=== PATIENT | female | born 1995 | race African-American/Black ===

== ENCOUNTER 2019-06-02 18:26 | Emergency (ER) | payer MEDICAID ==
[~2019-06-02] VITALS: Ht 175.3 cm; Wt 66.0 kg
[2019-06-02] MEDS ORDERED: IBUPROFEN 600MG TABLET PO ONE (20:00)
[2019-06-02 22:08] VITALS: BP 121/82
== END 2019-06-02 22:15 | disposition home or self-care (01) ==
LOC: ER 18:26
DX: S83.8X1A Sprain of other specified parts of right knee, initial encounter (principal); X50.1XXA Overexertion from prolonged static or awkward postures, initial encounter; Y93.89 Activity, other specified; Y92.89 Other specified places as the place of occurrence of the external cause; Y99.8 Other external cause status
CPT/HCPCS: 73560; 99283

== ENCOUNTER 2021-03-03 09:32 | Emergency (ER) | payer SELFPAY ==
[~2021-03-03] VITALS: Ht 167.6 cm; Wt 80.0 kg
[2021-03-03] MEDS ORDERED: CEPH500T MT (11:04)
[2021-03-03 11:18] VITALS: BP 118/84
== END 2021-03-03 11:20 | disposition home or self-care (01) ==
LOC: ER 09:32
DX: L03.116 Cellulitis of left lower limb (principal)
CPT/HCPCS: 93971; 99284

== ENCOUNTER 2021-03-04 16:15 | Inpatient (IN) | payer MEDICAID, OTHER ==
[~2021-03-04] VITALS: Ht 160 cm; Wt 84.4 kg
[~2021-03-04 16:15] MED LIST: CEPH500T MT
[2021-03-04] MEDS ORDERED: SODIUM CHLORIDE 0.9% 1,000 ML IV ONE (17:00)
[2021-03-04] MEDS ORDERED: KETOROLAC 15MG/ML VIAL IV ONE (17:00)
[2021-03-04 17:26] LABS: BASOPHILS % 0.4 % (0.0-2.0); EOSINOPHILS % 2.9 % (0.0-5.0); HEMATOCRIT. 33.6 % (36.0-48.0); HEMOGLOBIN. 11.3 g/dL (12.0-16.0); LYMPHOCYTES % 18.1 % (20.0-50.0); MEAN CORPUSCULAR HEMOGLOBIN 29.4 pg (28.0-32.0); MEAN CORPUSCULAR VOLUME 87.2 fL (81.0-99.0); MEAN PLATELET VOLUME 8.2 fl (7.4-10.4); MONOCYTES % 11.2 % (2.0-8.0); NEUTROPHILS % 67.4 % (40.0-76.0); PLATELET 104 x1000/uL (130-400); RED BLOOD CELL COUNT 3.86 mill/uL (4.2-5.4); RED CELL DISTRIBUTION WIDTH 15.9 % (11.6-14.6)
[2021-03-04 17:28] LABS: CHLORIDE 106 mEq/L (98-107)
[2021-03-04 17:29] LABS: HCG SCREEN NEGATIVE
[2021-03-04 17:59] LABS: CREATINE KINASE 369 IU/L (26-192)
[2021-03-04] MEDS ORDERED: ASPIRIN 325MG TABLET PO ONE (18:30)
[2021-03-04] MEDS ORDERED: IOHEXOL-350 100 ML BOTTLE ONE (23:20)
[2021-03-05 01:22] VITALS: BP 105/66
[2021-03-05] MEDS: HYDROCODONE/ACETAMINOPHEN 5/325MG TABLET PO PRN ×2 (06:53→16:36)
[2021-03-05 07:44] LABS: CHLORIDE 113 mEq/L (98-107)
[2021-03-05 07:51] LABS: HDL CHOLESTEROL 62 mg/dL (40-59)
[2021-03-05 07:55] LABS: HEMATOCRIT. 30.3 % (36.0-48.0); MEAN CORPUSCULAR HEMOGLOBIN 29.1 pg (28.0-32.0); MEAN CORPUSCULAR VOLUME 88.4 fL (81.0-99.0); MEAN PLATELET VOLUME 8.9 fl (7.4-10.4); PLATELET 87 x1000/uL (130-400); RED BLOOD CELL COUNT 3.43 mill/uL (4.2-5.4); RED CELL DISTRIBUTION WIDTH 15.9 % (11.6-14.6)
[2021-03-05 07:56] LABS: LDL CHOLESTEROL 52 mg/dL (5-100)
[2021-03-05 08:00] VITALS: BP 87/51
[2021-03-05] MEDS ORDERED: SODIUM CHLORIDE 0.9% 1,000 ML IV NR (09:45)
[2021-03-05 12:00] VITALS: BP 88/53
[2021-03-05 12:46] LABS: *AMPHETAMINES SCREEN URINE NEGATIVE (NEGATIVE)
[2021-03-05 12:47] LABS: *BARBITURATES SCREEN URINE NEGATIVE (NEGATIVE); *BENZODIAZEPINES SCREEN URINE NEGATIVE (NEGATIVE); *COCAINE SCREEN URINE NEGATIVE (NEGATIVE); CANNABINOID URINE SCREEN NEGATIVE (NEGATIVE); PHENCYCLIDINE URINE SCREEN NEGATIVE (NEGATIVE)
[2021-03-05 12:49] LABS: METHADONE URINE SCREEN NEGATIVE (NEGATIVE)
[2021-03-05 13:37] LABS: OPIATES URINE SCREEN PRESUMTIVE POSITIVE (NEGATIVE)
[2021-03-05 14:24] LABS: PLATELET ESTIMATE DECREASED
[2021-03-05] MEDS: SODIUM CHLORIDE 0.9% 1,000 ML IV SCH (14:52)
[2021-03-05 16:00] VITALS: BP 90/58
[2021-03-05 16:51] LABS: FERRITIN 27 ng/mL (10-291)
[2021-03-05 17:06] LABS: VITAMIN B12 SERUM 695 pg/mL (211-911)
[2021-03-05 20:00] VITALS: BP 93/57
[2021-03-05] MEDS ORDERED: VANCOMYCIN 1500MG in DEXTROSE 5% WATER 250ML IV NR (20:00)
[2021-03-06] VITALS: BP 93/56
[2021-03-06] MEDS: SODIUM CHLORIDE 0.9% 1,000 ML IV SCH ×3 (01:07→22:16)
[2021-03-06] MEDS: HYDROCODONE/ACETAMINOPHEN 5/325MG TABLET PO PRN (03:58)
[2021-03-06 04:00] VITALS: BP 97/60
[2021-03-06 06:57] LABS: BASOPHILS % 0.4 % (0.0-2.0); EOSINOPHILS % 8.5 % (0.0-5.0); HEMOGLOBIN. 9.4 g/dL (12.0-16.0); LYMPHOCYTES % 15.8 % (20.0-50.0); MEAN CORPUSCULAR HEMOGLOBIN 29.4 pg (28.0-32.0); MEAN CORPUSCULAR VOLUME 87.6 fL (81.0-99.0); MEAN PLATELET VOLUME 9.6 fl (7.4-10.4); MONOCYTES % 14.2 % (2.0-8.0); NEUTROPHILS % 61.1 % (40.0-76.0); PLATELET 101 x1000/uL (130-400); RED BLOOD CELL COUNT 3.19 mill/uL (4.2-5.4); RED CELL DISTRIBUTION WIDTH 16.1 % (11.6-14.6)
[2021-03-06 07:23] LABS: CHLORIDE 112 mEq/L (98-107)
[2021-03-06 08:00] VITALS: BP 91/62
[2021-03-06] MEDS: VANCOMYCIN 1250MG in DEXTROSE 5% WATER 250ML IV SCH ×2 (10:49→20:13)
[2021-03-06 12:00] VITALS: BP 87/51
[2021-03-06] MEDS: IRON SUCROSE COMPLEX 100 MG/5 ML ML IV SCH (15:53)
[2021-03-06 16:00] VITALS: BP 92/68
[2021-03-06 20:00] VITALS: BP 107/68
[2021-03-07] VITALS: BP 92/45
[2021-03-07 04:00] VITALS: BP 90/53
[2021-03-07 06:25] LABS: BASOPHILS % 0.4 % (0.0-2.0); EOSINOPHILS % 6.7 % (0.0-5.0); HEMATOCRIT. 28.8 % (36.0-48.0); HEMOGLOBIN. 9.7 g/dL (12.0-16.0); LYMPHOCYTES % 16.9 % (20.0-50.0); MEAN CORPUSCULAR HEMOGLOBIN 29.5 pg (28.0-32.0); MEAN CORPUSCULAR VOLUME 87.9 fL (81.0-99.0); MEAN PLATELET VOLUME 9.6 fl (7.4-10.4); MONOCYTES % 10.3 % (2.0-8.0); NEUTROPHILS % 65.7 % (40.0-76.0); PLATELET 98 x1000/uL (130-400); RED BLOOD CELL COUNT 3.28 mill/uL (4.2-5.4)
[2021-03-07 07:13] LABS: CHLORIDE 110 mEq/L (98-107)
[2021-03-07 08:00] VITALS: BP 92/60
[2021-03-07] MEDS ORDERED: NALOXONE HCL 0.4MG/ML VIAL IV PRN (09:30)
[2021-03-07] MEDS: POLYETHYLENE GLYCOL 3350 (17GM) 1 DOSE PACK PO NR ×3 (09:30→09:45)
[2021-03-07] MEDS: VANCOMYCIN 1250MG in DEXTROSE 5% WATER 250ML IV SCH (09:41)
[2021-03-07] MEDS: SODIUM CHLORIDE 0.9% 1,000 ML IV SCH ×2 (09:42→21:06)
[2021-03-07] MEDS ORDERED: REGADENOSON 0.4 MG/5 ML IV SCH (10:15)
[2021-03-07] MEDS ORDERED: PHENOL/SODIUM PHENOLATE 1.4% SRPAY 177ML MM PRN (11:00)
[2021-03-07 12:00] VITALS: BP 83/52
[2021-03-07] MEDS ORDERED: REGADENOSON 0.4 MG/5 ML IV ONE (14:03)
[2021-03-07 14:14] LABS: HEPATITIS B SURFACE ANTIGEN NEGATIVE
[2021-03-07] MEDS ORDERED: BISACODYL 10MG SUPP PR PRN (15:30)
[2021-03-07] MEDS: IRON SUCROSE COMPLEX 100 MG/5 ML ML IV SCH (15:32)
[2021-03-07 16:00] VITALS: BP 90/65
[2021-03-07] MEDS: VANCOMYCIN 1 G PREMIX 200 ML IV SCH ×2 (17:47→17:55)
[2021-03-07 20:00] VITALS: BP 91/58
[2021-03-08] VITALS: BP 97/53
[2021-03-08] MEDS: VANCOMYCIN 1 G PREMIX 200 ML IV SCH ×3 (01:55→17:18)
[2021-03-08 04:00] VITALS: BP 98/63
[2021-03-08 06:59] LABS: HEMATOCRIT. 26.6 % (36.0-48.0); HEMOGLOBIN. 8.8 g/dL (12.0-16.0); MEAN CORPUSCULAR HEMOGLOBIN 29.2 pg (28.0-32.0); MEAN PLATELET VOLUME 9.6 fl (7.4-10.4); PLATELET 92 x1000/uL (130-400); RED BLOOD CELL COUNT 3.03 mill/uL (4.2-5.4); RED CELL DISTRIBUTION WIDTH 15.7 % (11.6-14.6)
[2021-03-08 07:17] LABS: CHLORIDE 111 mEq/L (98-107)
[2021-03-08] MEDS: SODIUM CHLORIDE 0.9% 1,000 ML IV SCH ×2 (07:42→17:19)
[2021-03-08 08:00] VITALS: BP 95/56
[2021-03-08 12:00] VITALS: BP 112/61
[2021-03-08] MEDS: HYDROCODONE/ACETAMINOPHEN 5/325MG TABLET PO PRN (13:17)
[2021-03-08] MEDS: IRON SUCROSE COMPLEX 100 MG/5 ML ML IV SCH (14:08)
[2021-03-08 14:58] LABS: NUCLEATED RED BLOOD CELLS 1 /100 WBC
[2021-03-08 14:59] LABS: PLATELET ESTIMATE SLIGHTLY DECREASED
[2021-03-08 16:00] VITALS: BP 110/65
[2021-03-08 20:00] VITALS: BP 106/66
[2021-03-08] MEDS ORDERED: ONDANSETRON HCL 4MG/2ML INJ IV PRN (23:30)
[2021-03-09] VITALS: BP 101/57
[2021-03-09] MEDS: VANCOMYCIN 1 G PREMIX 200 ML IV SCH ×3 (01:38→17:03)
[2021-03-09 04:00] VITALS: BP 90/51
[2021-03-09 04:17] LABS: ANA IFA Negative (.)
[2021-03-09] MEDS: SODIUM CHLORIDE 0.9% 1,000 ML IV SCH ×2 (05:56→16:07)
[2021-03-09 08:00] VITALS: BP 103/61
[2021-03-09 10:05] LABS: BASOPHILS % 0.3 % (0.0-2.0); EOSINOPHILS % 4.5 % (0.0-5.0); HEMATOCRIT. 27.7 % (36.0-48.0); HEMOGLOBIN. 9.1 g/dL (12.0-16.0); LYMPHOCYTES % 15.2 % (20.0-50.0); MEAN CORPUSCULAR HEMOGLOBIN 29.2 pg (28.0-32.0); MEAN CORPUSCULAR VOLUME 88.6 fL (81.0-99.0); MEAN PLATELET VOLUME 9.5 fl (7.4-10.4); MONOCYTES % 11.5 % (2.0-8.0); NEUTROPHILS % 68.5 % (40.0-76.0); PLATELET 111 x1000/uL (130-400); RED BLOOD CELL COUNT 3.12 mill/uL (4.2-5.4); RED CELL DISTRIBUTION WIDTH 15.9 % (11.6-14.6)
[2021-03-09 10:07] LABS: CHLORIDE 109 mEq/L (98-107)
[2021-03-09 10:16] LABS: VANCOMYCIN TROUGH 12.3 ug/mL (5.0-10.0)
[2021-03-09 12:00] VITALS: BP 118/73
[2021-03-09] MEDS: HYDROCODONE/ACETAMINOPHEN 5/325MG TABLET PO PRN (13:49)
[2021-03-09 16:00] VITALS: BP 103/58
[2021-03-09 20:00] VITALS: BP 116/73
[2021-03-09] MEDS: METHYLPREDNISOLONE SOD SUCC 40 MG/ML VIAL IV SCH (22:08)
[2021-03-10] VITALS: BP 109/71
[2021-03-10] MEDS: VANCOMYCIN 1 G PREMIX 200 ML IV SCH ×3 (01:59→17:23)
[2021-03-10 04:00] VITALS: BP 95/69
[2021-03-10] MEDS: SODIUM CHLORIDE 0.9% 1,000 ML IV SCH ×2 (04:10→15:01)
[2021-03-10] MEDS: METHYLPREDNISOLONE SOD SUCC 40 MG/ML VIAL IV SCH ×3 (05:26→20:34)
[2021-03-10 07:44] LABS: HEMATOCRIT. 28.5 % (36.0-48.0); HEMOGLOBIN. 9.6 g/dL (12.0-16.0); MEAN CORPUSCULAR HEMOGLOBIN 29.6 pg (28.0-32.0); MEAN CORPUSCULAR VOLUME 87.7 fL (81.0-99.0); MEAN PLATELET VOLUME 9.3 fl (7.4-10.4); PLATELET 126 x1000/uL (130-400); RED BLOOD CELL COUNT 3.24 mill/uL (4.2-5.4)
[2021-03-10 08:00] VITALS: BP 127/82
[2021-03-10 08:12] LABS: CHLORIDE 107 mEq/L (98-107)
[2021-03-10 08:21] LABS: TOTAL IRON BINDING CAPACITY 401 ug/dL (250-450)
[2021-03-10 08:22] LABS: CREATINE KINASE 229 IU/L (26-192); T4 FREE 1.39 ng/dL (0.76-1.46)
[2021-03-10 08:34] LABS: VITAMIN B12 SERUM 544 pg/mL (211-911)
[2021-03-10] MEDS: HYDROXYCHLOROQUINE SULFATE 200MG TABLET PO SCH ×2 (10:38→17:23)
[2021-03-10 12:00] VITALS: BP 115/72
[2021-03-10] MEDS ORDERED: LIDOCAINE HCL 1% 20ML VIAL (Pyxis) INJ ONE (13:22)
[2021-03-10 13:38] LABS: NUCLEATED RED BLOOD CELLS 1 /100 WBC; PLATELET ESTIMATE SLIGHTLY DECREASED
[2021-03-10 16:00] VITALS: BP 123/73
[2021-03-10 20:00] VITALS: BP 110/62
[2021-03-11] VITALS: BP 102/48
[2021-03-11] MEDS: SODIUM CHLORIDE 0.9% 1,000 ML IV SCH ×2 (00:45→12:26)
[2021-03-11 04:00] VITALS: BP 90/43
[2021-03-11] MEDS: METHYLPREDNISOLONE SOD SUCC 40 MG/ML VIAL IV SCH ×3 (05:54→21:37)
[2021-03-11] MEDS: HYDROXYCHLOROQUINE SULFATE 200MG TABLET PO SCH ×2 (08:24→17:16)
[2021-03-11 09:07] LABS: ANTI-JO 1 ABS <0.2 AI (0.0-0.9); G6PD RBC 3.28 x10E6/uL (3.77-5.28)
[2021-03-11 12:33] VITALS: BP 118/66
[2021-03-11 15:10] LABS: ANTI-DNA DOUBLE STRANDED QUANT 1 IU/mL (0-9); G6PD QUANTITATIVE 340 (155-399)
[2021-03-11 15:28] LABS: HEMATOCRIT. 29.1 % (36.0-48.0); HEMOGLOBIN. 9.6 g/dL (12.0-16.0); MEAN CORPUSCULAR HEMOGLOBIN 29.4 pg (28.0-32.0); MEAN CORPUSCULAR VOLUME 88.8 fL (81.0-99.0); MEAN PLATELET VOLUME 9.2 fl (7.4-10.4); PLATELET 234 x1000/uL (130-400); RED BLOOD CELL COUNT 3.27 mill/uL (4.2-5.4); RED CELL DISTRIBUTION WIDTH 16.3 % (11.6-14.6)
[2021-03-11 15:38] LABS: CHLORIDE 111 mEq/L (98-107)
[2021-03-11 16:00] VITALS: BP 91/57
[2021-03-11] MEDS ORDERED: MORPHINE SULFATE 2 MG/ML CPJ (NOT FOR IM USE) IV PRN (17:45)
[2021-03-11 20:00] VITALS: BP 96/59
[2021-03-11 22:12] LABS: PLATELET ESTIMATE NORMAL
[2021-03-12] VITALS: BP 94/61
[2021-03-12 04:00] VITALS: BP 101/65
[2021-03-12] MEDS ORDERED: PREDNISONE 10MG TABLET PO SCH (07:40)
[2021-03-12 08:00] VITALS: BP 92/63
[2021-03-12] MEDS: HYDROXYCHLOROQUINE SULFATE 200MG TABLET PO SCH ×3 (08:50→16:31)
[2021-03-12 09:05] LABS: BASOPHILS % 0.1 % (0.0-2.0); CHLORIDE 109 mEq/L (98-107); HEMATOCRIT. 28.9 % (36.0-48.0); HEMOGLOBIN. 9.6 g/dL (12.0-16.0); LYMPHOCYTES % 10.9 % (20.0-50.0); MEAN CORPUSCULAR HEMOGLOBIN 29.3 pg (28.0-32.0); MEAN CORPUSCULAR VOLUME 88.4 fL (81.0-99.0); MEAN PLATELET VOLUME 8.7 fl (7.4-10.4); MONOCYTES % 9.5 % (2.0-8.0); NEUTROPHILS % 79.5 % (40.0-76.0); PLATELET 229 x1000/uL (130-400); RED BLOOD CELL COUNT 3.27 mill/uL (4.2-5.4); RED CELL DISTRIBUTION WIDTH 16.4 % (11.6-14.6)
[2021-03-12 12:00] VITALS: BP_SYST 95; BP_DIAS 68; BP_DIAS 88
[2021-03-12] MEDS: SODIUM CHLORIDE 0.9% 1,000 ML IV SCH ×2 (12:25→12:27)
[2021-03-12 15:48] VITALS: BP 95/58
[2021-03-12 16:00] VITALS: BP 98/65
[2021-03-12] MEDS ORDERED: FERR325T6 MT (16:39)
[2021-03-12] MEDS ORDERED: PRED10TA23 MT (16:39)
[2021-03-12] MEDS ORDERED: FAMO20TA8 MT (16:39)
[2021-03-12 17:06] LABS: ALDOLASE 19.1 U/L (3.3-10.3)
[2021-03-12 19:10] LABS: ACTIN (SMOOTH MUSCLE) ANTIBODY 8 Units (0-19)
[2021-03-13 07:06] LABS: NEISSERIA GONORRHOEAE NAA Negative (Negative)
[2021-03-13 09:10] LABS: ANTI-CARDIOLIPIN AB IGA < 9 APL U/mL (0-11); ANTI-CARDIOLIPIN AB IGG < 9 GPL U/mL (0-14); ANTI-CARDIOLIPIN AB IGM 28 MPL U/mL (0-12)
[2021-03-13 13:10] LABS: HIV SCREEN 4G Non Reactive (Non Reactive)
[2021-03-13 19:08] LABS: ANTI-MYELOPEROXIDASE AB < 9.0 U/mL (0.0-9.0); ANTI-PROTEINASE 3 ABS 6.1 U/mL (0.0-3.5)
[2021-03-15 09:07] LABS: CYC CITRULLINATED PEP IgG/IgA 34 units (0-19)
[2021-03-15 13:07] LABS: ATYPICAL P-ANCA <1:20 titer (Neg:<1:20); CYTOPLASMIC C-ANCA <1:20 titer (Neg:<1:20); PERINUCLEAR P-ANCA 1:40 titer (Neg:<1:20)
== END 2021-03-12 19:15 | disposition home or self-care (01) | DRG 720 ==
LOC: ER 16:15 → ENRESERV 23:13 → 8WST 03-05 00:05
PROVIDERS: ADMIT Internal Medicine; ATTEND Internal Medicine
PROC: 02HV33Z Insertion of Infusion Device into Superior Vena Cava, Percutaneous Approach (ICD-10-PCS; principal; 2021-03-10)
PROC: B518ZZA Fluoroscopy of Superior Vena Cava, Guidance (ICD-10-PCS; 2021-03-10)
PROC: B548ZZA Ultrasonography of Superior Vena Cava, Guidance (ICD-10-PCS; 2021-03-10)
DX: A41.89 Other specified sepsis (principal); R65.21 Severe sepsis with septic shock; I21.4 Non-ST elevation (NSTEMI) myocardial infarction; D69.6 Thrombocytopenia, unspecified; J90 Pleural effusion, not elsewhere classified; I42.9 Cardiomyopathy, unspecified; K52.1 Toxic gastroenteritis and colitis; D72.810 Lymphocytopenia; L03.116 Cellulitis of left lower limb; N93.9 Abnormal uterine and vaginal bleeding, unspecified; R79.82 Elevated C-reactive protein (CRP); M62.81 Muscle weakness (generalized); R74.01 Elevation of levels of liver transaminase levels; Z20.822 Contact with and (suspected) exposure to COVID-19; T36.95XA Adverse effect of unspecified systemic antibiotic, initial encounter; D50.9 Iron deficiency anemia, unspecified; M35.9 Systemic involvement of connective tissue, unspecified; K76.0 Fatty (change of) liver, not elsewhere classified; K59.00 Constipation, unspecified; Y92.238 Other place in hospital as the place of occurrence of the external cause; T38.0X5A Adverse effect of glucocorticoids and synthetic analogues, initial encounter; Y92.89 Other specified places as the place of occurrence of the external cause
CPT/HCPCS: 36415; 36573; 71045; 71275; 73220; 73630; 78452; 80048; 80053; 80061; 80202; 80305; 82085; 82164; 82550; 82607; 82728; 82955; 83520; 83540; 83550; 83735; 83880; 84145; 84439; 84484; 84703; 85025; 85041; 85651; 86141; 86147; 86160; 86200; 86225; 86235; 86256; 86431; 86592; 86705; 86709; 86780; 86803; 86880; 87070; 87340; 87389; 87426; 87430; 87449; 87491; 87591; 93005; 93017; 93306; 99285; A9500; C1725; C1769; C1893; J1885; J2270; J2785; J2920; J3370; J3490; J7030; J7040; J7060; J7512; Q9967

== ENCOUNTER 2021-04-05 16:50 | Emergency (ER) | payer MEDICAID ==
[~2021-04-05] VITALS: Ht 167.6 cm; Wt 78.0 kg
[~2021-04-05 16:50] MED LIST changes: -CEPH500T MT; +FAMO20TA8 MT; +FERR325T6 MT; +PRED10TA23 MT
[2021-04-05 17:01] VITALS: BP 106/70
[2021-04-05 18:59] LABS: CLARITY URINE CLEAR (CLEAR); COLOR URINE YELLOW (YELLOW); KETONES URINE 1+ (NEGATIVE); LEUKOCYTE ESTERASE URINE 2+ (NEGATIVE); NITRITE URINE NEGATIVE (NEGATIVE); OCCULT BLOOD URINE NEGATIVE (NEGATIVE); PH URINE 5.5 (4.5-8.0); PROTEIN URINE NEGATIVE (NEGATIVE); SPECIFIC GRAVITY URINE 1.022 (1.005-1.030)
[2021-04-05] MEDS ORDERED: DIF15 MT (19:22)
[2021-04-05] MEDS ORDERED: CEPH500C2 MT (19:22)
== END 2021-04-05 20:16 | disposition home or self-care (01) ==
LOC: ER 16:50
DX: N39.0 Urinary tract infection, site not specified (principal); Z98.890 Other specified postprocedural states
CPT/HCPCS: 81003; 81025; 82962; 99283

== ENCOUNTER 2021-08-19 08:55 | Emergency (ER) | payer MEDICAID, OTHER ==
[~2021-08-19] VITALS: Ht 167.6 cm; Wt 77.0 kg
[~2021-08-19 08:55] MED LIST changes: +CEPH500C2 MT; +DIF15 MT
[2021-08-19] MEDS ORDERED: ONDANSETRON HCL 4MG/2ML INJ IV STA (09:10)
[2021-08-19] MEDS ORDERED: KETOROLAC 30MG/ML VIAL IV STA (09:10)
[2021-08-19] MEDS ORDERED: SODIUM CHLORIDE 0.9% 1000ML BAG (SEPSIS BOLUS) IV ONE (09:15)
[2021-08-19] MEDS ORDERED: SODIUM CHLORIDE 0.9% 1,000 ML IV ONE (09:15)
[2021-08-19 10:06] LABS: BASOPHILS % 0.2 % (0.0-2.0); EOSINOPHILS % 5.3 % (0.0-5.0); HEMATOCRIT. 45.1 % (36.0-48.0); HEMOGLOBIN. 15.6 g/dL (12.0-16.0); LYMPHOCYTES % 17.1 % (20.0-50.0); MEAN CORPUSCULAR HEMOGLOBIN 30.7 pg (28.0-32.0); MEAN PLATELET VOLUME 9.4 fl (7.4-10.4); MONOCYTES % 12.4 % (2.0-8.0); PLATELET 299 x1000/uL (130-400); RED BLOOD CELL COUNT 5.07 mill/uL (4.2-5.4); RED CELL DISTRIBUTION WIDTH 14.1 % (11.6-14.6)
[2021-08-19 10:16] LABS: HCG SCREEN NEGATIVE
[2021-08-19 10:17] LABS: CHLORIDE 109 mEq/L (98-107)
[2021-08-19 19:18] VITALS: BP 99/63
== END 2021-08-19 19:49 | disposition short-term general hospital (02) ==
LOC: ER 10:06
DX: A41.9 Sepsis, unspecified organism (principal); R65.20 Severe sepsis without septic shock; K52.9 Noninfective gastroenteritis and colitis, unspecified; E86.0 Dehydration; E87.2 Acidosis; Z20.822 Contact with and (suspected) exposure to COVID-19; Z98.890 Other specified postprocedural states
CPT/HCPCS: 36415; 71045; 74176; 80053; 83605; 83690; 84484; 84703; 85025; 87040; 87426; 93005; 96361; 96374; 96375; 99291; J1885; J2405; J7030

== ENCOUNTER 2023-05-17 10:08 | Emergency (ER) | payer OTHER ==
[~2023-05-17] VITALS: Ht 170.2 cm; Wt 91.0 kg
[2023-05-17 10:30] VITALS: TEMP 98; O2SAT 99
[2023-05-17] MEDS ORDERED: IBUPROFEN 600MG TABLET PO ONE (12:00)
[2023-05-17] MEDS ORDERED: IBUP-2029 MT (12:58)
[2023-05-17 13:15] VITALS: BP 119/71; PULSE 86; RESP 15
== END 2023-05-17 13:23 | disposition home or self-care (01) ==
LOC: ER 10:17
DX: M79.672 Pain in left foot (principal); Z98.890 Other specified postprocedural states
CPT/HCPCS: 73630; 99283

== ENCOUNTER 2023-06-19 09:48 | Emergency (ER) | payer MEDICAID, OTHER ==
[~2023-06-19] VITALS: Ht 170.2 cm; Wt 91.0 kg
[~2023-06-19 09:48] MED LIST changes: +IBUP-2029 MT
[2023-06-19 09:58] VITALS: BP 107/68; O2SAT 99
[2023-06-19] MEDS ORDERED: CEPH500T MT (11:51)
[2023-06-19 13:50] VITALS: PULSE 99; RESP 16; TEMP 97.9
== END 2023-06-19 13:50 | disposition home or self-care (01) ==
LOC: ER 09:48
DX: L03.115 Cellulitis of right lower limb (principal); Z98.890 Other specified postprocedural states
CPT/HCPCS: 93971; 99284

== ENCOUNTER 2024-08-31 10:58 | Emergency (ER) | payer MEDICAID, OTHER ==
[~2024-08-31] VITALS: Ht 167.6 cm; Wt 93.9 kg
[~2024-08-31 10:58] MED LIST changes: +APIX5TAB MT; +CEPH500T MT; +DOCU-138 MT
[2024-08-31 11:00] VITALS: O2SAT 100
[2024-08-31 11:05] VITALS: BP 113/70; RESP 20; TEMP 36.9; O2SAT 99
[2024-08-31] MEDS: ACETAMINOPHEN 500MG TABLET PO ONE (11:38)
[2024-08-31 11:50] VITALS: PULSE 88
[2024-08-31] MEDS ORDERED: FLUT9.9S BOTHNSTRLS (12:20)
== END 2024-08-31 12:37 | disposition home or self-care (01) ==
LOC: ER 10:58
DX: J34.9 Unspecified disorder of nose and nasal sinuses (principal)
CPT/HCPCS: 70486; 99284

== ENCOUNTER 2025-01-08 17:18 | Emergency (ER) | payer MEDICAID, OTHER ==
[~2025-01-08] VITALS: Ht 170.2 cm; Wt 92.0 kg
[~2025-01-08 17:18] MED LIST changes: +FLUT9.9S BOTHNSTRLS
[2025-01-08 17:21] VITALS: O2SAT 100
[2025-01-08] MEDS ORDERED: ERYT1OIN6 LEFTEYE (19:36)
[2025-01-08] MEDS ORDERED: CIPR2.5D17 LEFTEYE (19:36)
[2025-01-08 20:20] VITALS: BP 111/71; PULSE 91; RESP 12; TEMP 36.7; O2SAT 100
== END 2025-01-08 20:38 | disposition home or self-care (01) ==
LOC: ER 17:18
DX: H00.16 Chalazion left eye, unspecified eyelid (principal); Z79.899 Other long term (current) drug therapy
CPT/HCPCS: 99283